=== PATIENT | female | born 1955 | race Caucasian/White ===

== ENCOUNTER 2021-10-22 17:03 | Observation (INO) | payer OTHER, MEDICARE ==
[2021-10-22 18:20] LABS: Absolute Lymphocytes (CBC) 1.6 K/uL (0.7-4.9); Hematocrit 39.6 % (36.0-45.0); Lymphocytes % 20.8 % (15.3-44.8); MCV 91.6 fL (80-100); MPV 8.9 fL (7.6-11.3); Protime INR 0.95; RBC Red Blood Cell Count 4.32 M/uL (3.86-4.86)
--- NOTE | 2021-10-22 18:21 | RAD REPORT ---
EXAM DESCRIPTION: CT - Ct Stroke Brain Wo Cont - 10/22/2021 6:15 pm CLINICAL HISTORY: ATAXIA CVA symptomology COMPARISON: <Comparisons> TECHNIQUE: All CT scans are performed using dose optimization technique as appropriate and may inclu de automated exposure control or mA/KV adjustment according to patient size. FINDINGS: No intracranial hemorrhage, hydrocephalus or extra-axial fluid collection.Mild brain atrop hy.No areas of brain edema or evidence of midline shift. The paranasal sinuses and mastoids are clear. The calvarium is intact. IMPRESSION: No acute intracranial abnormality. The findings were communicated with Dr. Kang in the ER on 10/22/2021 at 6:15 p.m. by telephone.
--- NOTE | 2021-10-22 18:23 | RAD REPORT ---
EXAM DESCRIPTION: CT - Head angio - 10/22/2021 6:16 pm CLINICAL HISTORY: Neuro deficit, acute, stroke suspected COMPARISON: Ct Stroke Brain Wo Cont dated 10/22/2021 TECHNIQUE: CT angiography of the head was performed with MIPs. All CT scans are performed using dose optimization technique as appropriate and may include automated exposure control or mA/KV adjustment according to patient size. FINDINGS: No evidence of aneurysm is detected. No flow-limiting stenosis or vascular malformation id entified. Antegrade flow is seen in the vertebral arteries. The vertebral arteries are codominant. The visualized dural venous sinuses are patent. IMPRESSION: No significant flow abnormality is detected.
--- NOTE | 2021-10-22 18:25 | ER ---
Nurse's Notes [facility] Name: Solange Estrada Age: 66 yrs Sex: Female : 1955 Arrival Date: 10/22/2021 Time: 17:05 Bed 2 Private MD: Diagnosis: Aphasia;Type 2 diabetes mellitus with hyperglycemia;Essential (primary) hypertension;Weakness Presentation: 10/22 17:18 Chief complaint: Patient states: a few weeks back I started to lose my words and I had iw been stumbling a while but in the last week I've been falling , my left side feels weaker than the other, that's been about a week , also is having tremors in both arms. Coronavirus screen: At this time, the client does not indicate any symptoms associated with coronavirus-19. Ebola Screen: Patient negative for fever greater than or equal to 101.5 degrees Fahrenheit, and additional compatible Ebola Virus Disease symptoms Patient denies exposure to infectious person. Patient denies travel to an Ebola-affected area in the 21 days before illness onset. No symptoms or risks identified at this time. No acute neurological deficit is noted. Pre-hospital glucose is not applicable to this patient. Initial Sepsis Screen: Does the patient meet any 2 criteria? No. Patient's initial sepsis screen is negative. Does the patient have a suspected source of infection? No. Patient's initial sepsis screen is negative. Risk Assessment: Do you want to hurt yourself or someone else? Patient reports no desire to harm self or others. Onset of symptoms was October 15, 2021. 17:18 Method Of Arrival: Wheelchair iw 17:18 Acuity: CHENCHO 3 iw Triage Assessment: 22:38 The onset of the patients symptoms was October 22, 2021 at 22:38. General: Appears in no kd3 apparent distress. Behavior is calm, cooperative. 22:38 Neuro: Reports weakness. kd3 Stroke Activation: Symptom onset > 6 hours Physician: Stroke Attending; Name: ; Notified At: ; Arrived At: Physician: Chief Stroke Resident; Name: ; Notified At: ; Arrived At: Physician: Stroke Resident; Name: ; Notified At: ; Arrived At: Physician: ED Attending; Name: ; Notified At: ; Arrived At: Physician: ED Resident; Name: ; Notified At: ; Arrived At: Historical: - Allergies: 17:21 Aspirin; iw - Home Meds: 17:21 nortriptyline 125 mg Oral once daily [Active]; clopidogrel 75 mg oral tab 1 tab once iw daily [Active]; irbesartan 300 mg oral tab 1 tab once daily [Active]; metoprolol tartrate 100 mg Oral tab 1 tab once daily [Active]; metformin 1,000 mg Oral tr24 1 tab 2 times per day [Active]; glimepiride 4 mg Oral tab 1 tab twice a day [Active]; levothyroxine 50 mcg tab 1 tab once daily [Active]; Farxiga 10 mg oral tab 1 tab once daily [Active]; zolpidem 12.5 mg Oral TbMP 1 tab once daily [Active]; - PMHx: 17:21 Diabetes mellitus; Hypertensive disorder; iw - Immunization history:: Client reports receiving the 2nd dose of the Covid vaccine. - Social history:: Smoking status: Patient reports the use of cigarette tobacco products, denies chronic smoking, but will smoke occasionally. - Hospitalizations: : No recent hospitalization is reported. Screenin:37 Abuse screen: Denies threats or abuse. Denies injuries from another. Nutritional kd3 screening: No deficits noted. Tuberculosis screening: No symptoms or risk factors identified. Fall Risk IV access (20 points). Assessment: 18:30 General: MRI called stating that pt is needing medication for anxiety while completing jh6 the study. provider advised. . 22:30 VAN Scoring: Arm Drift: Patients demonstrates NO arm weakness. Patient is VAN Negative. kd3 Patient has been NPO before screening. The patient is alert, and able to follow commands. The patient does not exhibit slurred or garbled speech. The patient is not exhibiting difficulty speaking. The patient is exhibiting difficulty understanding words. The patient is able to swallow own secretions with no drooling or need for suction. Patient tolerated one teaspoon of water. No drooling, immediate coughing, gurgling, or clearing of the throat was noted. The patient tolerated 90mL of water. No drooling, immediate coughing, gurgling, or clearing of the throat was noted. The patient passed the bedside swallow screening. Oral medications may be given as ordered. Contact Physician for further diet orders. Provider notified of bedside swallow screening results: Angel Luis Kang MD. TNKase (Tenecteplase) Screening: Contraindications:. Pain: Denies pain. Neuro: Level of Consciousness is awake, alert, obeys commands, Oriented to person, place, time, situation. Vital Signs: 17:18 BP 107 / 54; Pulse 100; Resp 16; Temp 98.8; Pulse Ox 100% on R/A; Weight 68.04 kg; iw Height 5 ft. 0 in. (152.40 cm); 22:39 BP 108 / 53; Pulse 102; Resp 19; Pulse Ox 100% on R/A; kd3 17:18 Body Mass Index 29.29 (68.04 kg, 152.40 cm) iw NIH Stroke Scale Scores: 18:04 NIHSS Score: 2 rosa maria 22:30 NIHSS Score: 0 kd3 ED Course: 17:05 Patient arrived in ED. as 17:21 Triage completed. iw 17:24 Arm band placed on. iw 17:28 Angel Luis Kang MD is Attending Physician. rosa maria 18:00 Initial lab(s) drawn, by tn, sent to lab. Inserted saline lock: 20 gauge in left dh3 forearm, using aseptic technique. Blood collected. 18:17 CT Stroke Brain w/o Contrast In Process Unspecified. EDMS 18:17 CT Head Angio In Process Unspecified. EDMS 18:18 CT Neck Angio In Process Unspecified. EDMS 18:21 Gavino Gramajo is Hospitalizing Provider. rosa maria 18:41 Brain Wo Cont Sent. jh6 18:56 Brain Wo Cont In Process Unspecified. EDMS 19:36 XRAY Chest (1 view) In Process Unspecified. EDMS 20:50 Jessica Mosley, RN is Primary Nurse. kd3 22:37 Patient has correct armband on for positive identification. kd3 22:37 No provider procedures requiring assistance completed. Patient admitted, IV remains in kd3 place. Administered Medications: 18:38 Drug: Ativan (LORazepam) 1 mg Route: IVP; Site: left antecubital; [facility] 22:40 Follow up: Response: No adverse reaction kd3 20:44 Not Given (Duplicate Order): Ativan (LORazepam) 1 mg IVP once kl 21:12 Drug: NS 0.9% 1000 ml Route: IV; Rate: 1 bolus; Site: left antecubital; 22:40 Follow up: Response: No adverse reaction; IV Status: Completed infusion kd3 22:22 Drug: foLIC Acid 1 mg Route: IVPB; Site: left antecubital; kd3 22:22 Follow up: Response: No adverse reaction; IV Status: Completed infusion kd3 Medication: 22:39 VIS not applicable for this client. kd3 Point of Care Testing: Blood Glucose: 22:39 Blood Glucose: 120 mg/dL; kd3 Ranges: Outcome: 18:24 Decision to Hospitalize by Provider. [facility] 22:37 Admitted to Med/surg accompanied by tech, room 210. kd3 22:37 Condition: stable 22:37 Discharge instructions given to patient, Instructed on the need for admit, Demonstrated understanding of instructions. 23:20 Patient left the ED. kd3 NIH Stroke Scale - NIH Stroke Score Date: 10/22/2021 Time: 18:04 Total Score = 2 1a. Level of Consciousness (LOC) - 0(Alert) 1b. Level of Consciousness (LOC) (Month \T\ Age) - 0(Both) 1c. LOC Commands (Open \T\ Closes Eyes/Senior Manager Mmcoe) - 0(Both) 2. Best Gaze (Lateral Gaze Paresis) - 0(Normal) 3. Visual Field Loss - 0(No visual loss) 4. Facial Palsy - 0(Normal) 5a. Left Arm: Motor (10-second hold) - 0(No drift) 5b. Right Arm: Motor (10-second hold) - 0(No drift) 6a. Left Leg: Motor (5-second hold - always test supine) - 0(No drift) 6b. Right Leg: Motor (5-second hold - always test supine) - 0(No drift) 7. Limb Ataxia (finger/nose \T\ heel/dias - test with eyes open) - 2(Present in two limbs) 8. Sensory Loss (pinprick arms/legs/face) - 0(Normal) 9. Best Language: Aphasia (description/naming/reading) - 0(No aphasia) 10. Dysarthria (speech clarity - read or repeat words) - 0(Normal) 11. Extinction and Inattention (visual/tactile/auditory/spatial/personal) - 0(No abnormality) Initials: rosa maria NIH Stroke Scale - NIH Stroke Score Date: 10/22/2021 Time: 22:30 Total Score = 0 1a. Level of Consciousness (LOC) - 0(Alert) 1b. Level of Consciousness (LOC) (Month \T\ Age) - 0(Both) 1c. LOC Commands (Open \T\ Closes Eyes/Senior Manager Mmcoe) - 0(Both) 2. Best Gaze (Lateral Gaze Paresis) - 0(Normal) 3. Visual Field Loss - 0(No visual loss) 4. Facial Palsy - 0(Normal) 5a. Left Arm: Motor (10-second hold) - 0(No drift) 5b. Right Arm: Motor (10-second hold) - 0(No drift) 6a. Left Leg: Motor (5-second hold - always test supine) - 0(No drift) 6b. Right Leg: Motor (5-second hold - always test supine) - 0(No drift) 7. Limb Ataxia (finger/nose \T\ heel/dias - test with eyes open) - 0(Absent) 8. Sensory Loss (pinprick arms/legs/face) - 0(Normal) 9. Best Language: Aphasia (description/naming/reading) - 0(No aphasia) 10. Dysarthria (speech clarity - read or repeat words) - 0(Normal) 11. Extinction and Inattention (visual/tactile/auditory/spatial/personal) - 0(No abnormality) Initials: kd3 Signatures: Dispatcher [employer] EDMS Sherie Connors, RN Angel Luis Reddy MD MD cha Martinez, Amelia as Williams, Irene, RN RN iw Herrera, [facility] Jessica Mosley RN RN kd3 Margie Bradley RN RN jh6
--- NOTE | 2021-10-22 18:25 | EDPHYS ---
Physician Documentation [facility] Name: Solange Estrada Age: 66 yrs Sex: Female : 1955 Arrival Date: 10/22/2021 Time: 17:05 Bed 2 Private MD: MARIO Physician Angel Luis Kang HPI: 10/22 18:04 This 66 yrs old Female presents to ER via Wheelchair with complaints of rosa maria Trouble Walking. 18:04 The patient presents to the emergency department with weakness of the left upper rosa maria extremity, left lower extremity, a speech or higher order brain function problem, aphasia. Onset: The symptoms/episode began/occurred 60 day(s) ago. Context: occurred at an unknown location. Associated signs and symptoms: Pertinent positives: dizziness, near-syncope, weakness, LEFT ARM AND LEG UNCOORDINATED. Severity of symptoms: At their worst the symptoms were mild in the emergency department the symptoms are unchanged. Patient's baseline: Neuro: alert and fully oriented, Motor: no deficits, Ambulation: walks without assistance, Speech: normal for age. Current symptoms: dysphasia. The patient has experienced similar episodes in the past, several times. Historical: - Allergies: 17:21 Aspirin; iw - Home Meds: 17:21 nortriptyline 125 mg Oral once daily [Active]; clopidogrel 75 mg oral tab 1 tab once iw daily [Active]; irbesartan 300 mg oral tab 1 tab once daily [Active]; metoprolol tartrate 100 mg Oral tab 1 tab once daily [Active]; metformin 1,000 mg Oral tr24 1 tab 2 times per day [Active]; glimepiride 4 mg Oral tab 1 tab twice a day [Active]; levothyroxine 50 mcg tab 1 tab once daily [Active]; Farxiga 10 mg oral tab 1 tab once daily [Active]; zolpidem 12.5 mg Oral TbMP 1 tab once daily [Active]; - PMHx: 17:21 Diabetes mellitus; Hypertensive disorder; iw - Immunization history:: Client reports receiving the 2nd dose of the Covid vaccine. - Social history:: Smoking status: Patient reports the use of cigarette tobacco products, denies chronic smoking, but will smoke occasionally. - Hospitalizations: : No recent hospitalization is reported. ROS: 18:04 Constitutional: Negative for fever, chills, and weight loss, Eyes: Negative for injury, rosa maria pain, redness, and discharge, ENT: Negative for injury, pain, and discharge, Neck: Negative for injury, pain, and swelling, Cardiovascular: Negative for chest pain, palpitations, and edema, Respiratory: Negative for shortness of breath, cough, wheezing, and pleuritic chest pain, Abdomen/GI: Negative for abdominal pain, nausea, vomiting, diarrhea, and constipation, Back: Negative for injury and pain, : Negative for injury, bleeding, discharge, and swelling, MS/Extremity: Negative for injury and deformity, Skin: Negative for injury, rash, and discoloration, Psych: Negative for depression, anxiety, suicide ideation, homicidal ideation, and hallucinations, Allergy/Immunology: Negative for hives, rash, and allergies, Endocrine: Negative for neck swelling, polydipsia, polyuria, polyphagia, and marked weight changes, Hematologic/Lymphatic: Negative for swollen nodes, abnormal bleeding, and unusual bruising. 18:04 Neuro: Positive for gait disturbance, speech changes, tremor, weakness. Exam: 18:04 Constitutional: This is a well developed, well nourished patient who is awake, alert, rosa maria and in no acute distress. Head/Face: Normocephalic, atraumatic. Eyes: Pupils equal round and reactive to light, extra-ocular motions intact. Lids and lashes normal. Conjunctiva and sclera are non-icteric and not injected. Cornea within normal limits. Periorbital areas with no swelling, redness, or edema. ENT: Nares patent. No nasal discharge, no septal abnormalities noted. Tympanic membranes are normal and external auditory canals are clear. Oropharynx with no redness, swelling, or masses, exudates, or evidence of obstruction, uvula midline. Mucous membranes moist. Neck: Trachea midline, no thyromegaly or masses palpated, and no cervical lymphadenopathy. Supple, full range of motion without nuchal rigidity, or vertebral point tenderness. No Meningismus. Chest/axilla: Normal chest wall appearance and motion. Nontender with no deformity. No lesions are appreciated. Cardiovascular: Regular rate and rhythm with a normal S1 and S2. No gallops, murmurs, or rubs. Normal PMI, no JVD. No pulse deficits. Respiratory: Lungs have equal breath sounds bilaterally, clear to auscultation and percussion. No rales, rhonchi or wheezes noted. No increased work of breathing, no retractions or nasal flaring. Abdomen/GI: Soft, non-tender, with normal bowel sounds. No distension or tympany. No guarding or rebound. No evidence of tenderness throughout. Back: No spinal tenderness. No costovertebral tenderness. Full range of motion. Female : Normal external genitalia. Skin: Warm, dry with normal turgor. Normal color with no rashes, no lesions, and no evidence of cellulitis. MS/ Extremity: Pulses equal, no cyanosis. Neurovascular intact. Full, normal range of motion. Psych: Awake, alert, with orientation to person, place and time. Behavior, mood, and affect are within normal limits. Vital Signs: 17:18 BP 107 / 54; Pulse 100; Resp 16; Temp 98.8; Pulse Ox 100% on R/A; Weight 68.04 kg; iw Height 5 ft. 0 in. (152.40 cm); 22:39 BP 108 / 53; Pulse 102; Resp 19; Pulse Ox 100% on R/A; kd3 17:18 Body Mass Index 29.29 (68.04 kg, 152.40 cm) iw NIH Stroke Scale Scores: 18:04 NIHSS Score: 2 rosa maria 22:30 NIHSS Score: 0 kd3 MDM: 17:28 Patient medically screened. rosa maria 18:18 Data reviewed: vital signs, nurses notes, lab test result(s), EKG, radiologic studies, rosa maria CT scan, MRI, plain films. Data interpreted: hospital monitor: rate is 100 beats/min, rhythm is regular, Pulse oximetry: on room air is 100 %. Test interpretation: by ED physician or midlevel provider: ECG, plain radiologic studies. Counseling: I had a detailed discussion with the patient and/or guardian regarding: the historical points, exam findings, and any diagnostic results supporting the discharge/admit diagnosis, lab results, radiology results, the need for further work-up and treatment in the hospital. 10/22 17:38 Order name: Basic Metabolic Panel; Complete Time: 18:42 [facility] 10/22 17:38 Order name: CBC with Diff; Complete Time: 18:42 [facility] 10/22 17:38 Order name: D-Dimer; Complete Time: 18:29 [facility] 10/22 17:38 Order name: Magnesium; Complete Time: 18:42 [facility] 10/22 17:38 Order name: NT PRO-BNP; Complete Time: 18:42 [facility] 10/22 17:38 Order name: PT-INR; Complete Time: 18:29 [facility] 10/22 17:38 Order name: Troponin HS; Complete Time: 18:42 [facility] 10/22 17:38 Order name: XRAY Chest (1 view); Complete Time: 22:45 [facility] 10/22 17:38 Order name: Sed Rate; Complete Time: 18:42 [facility] 10/22 17:38 Order name: CRP; Complete Time: 18:42 [facility] 10/22 17:38 Order name: CT Stroke Brain w/o Contrast; Complete Time: 18:29 [facility] 10/22 17:38 Order name: CT Head Angio; Complete Time: 18:29 [facility] 10/22 17:38 Order name: CT Neck Angio; Complete Time: 18:29 [facility] 10/22 20:21 Order name: SARS RAPID; Complete Time: 22:45 [facility] 10/22 17:38 Order name: EKG; Complete Time: 17:39 [facility] 10/22 17:38 Order name: Cardiac monitoring; Complete Time: 22:15 [facility] 10/22 17:38 Order name: EKG - Nurse/Tech; Complete Time: 22:36 [facility] 10/22 17:38 Order name: IV Saline Lock; Complete Time: 18:03 [facility] 10/22 17:38 Order name: Labs collected and sent; Complete Time: 18:03 [facility] 10/22 17:38 Order name: O2 Per Protocol; Complete Time: 18:03 [facility] 10/22 17:38 Order name: O2 Sat Monitoring; Complete Time: 18:03 [facility] 10/22 17:38 Order name: Urine Dipstick-Ancillary (obtain specimen); Complete Time: 22:36 [facility] 10/22 17:47 Order name: Brain Wo Cont; Complete Time: 19:20 EDMS Administered Medications: 18:38 Drug: Ativan (LORazepam) 1 mg Route: IVP; Site: left antecubital; jh6 22:40 Follow up: Response: No adverse reaction kd3 20:44 Not Given (Duplicate Order): Ativan (LORazepam) 1 mg IVP once kl 21:12 Drug: NS 0.9% 1000 ml Route: IV; Rate: 1 bolus; Site: left antecubital; kl 22:40 Follow up: Response: No adverse reaction; IV Status: Completed infusion kd3 22:22 Drug: foLIC Acid 1 mg Route: IVPB; Site: left antecubital; kd3 22:22 Follow up: Response: No adverse reaction; IV Status: Completed infusion kd3 Point of Care Testing: Blood Glucose: 22:39 Blood Glucose: 120 mg/dL; kd3 Ranges: Critical Glucose Levels:Adult <50 mg/dl or >400 mg/dl <40 mg/dl or >180 mg/dl Disposition Summary: 10/22/21 18:24 Hospitalization Ordered Hospitalization Status: Observation rosa maria Provider: Gavino Gramajo cha Location: Telemetry/MedSurg (observation) rosa maria Condition: Fair rosa maria Problem: new rosa maria Symptoms: have improved rosa maria Bed/Room Type: Standard rosa maria Room Assignment: 210(10/22/21 21:41) cg Diagnosis - Aphasia rosa maria - Type 2 diabetes mellitus with hyperglycemia rosa maria - Essential (primary) hypertension rosa maria - Weakness rosa maria Forms: - Medication Reconciliation Form rosa maria - SBAR form rosa maria NIH Stroke Scale - NIH Stroke Score Date: 10/22/2021 Time: 18:04 Total Score = 2 1a. Level of Consciousness (LOC) - 0(Alert) 1b. Level of Consciousness (LOC) (Month \T\ Age) - 0(Both) 1c. LOC Commands (Open \T\ Closes Eyes/Donor Services Manager) - 0(Both) 2. Best Gaze (Lateral Gaze Paresis) - 0(Normal) 3. Visual Field Loss - 0(No visual loss) 4. Facial Palsy - 0(Normal) 5a. Left Arm: Motor (10-second hold) - 0(No drift) 5b. Right Arm: Motor (10-second hold) - 0(No drift) 6a. Left Leg: Motor (5-second hold - always test supine) - 0(No drift) 6b. Right Leg: Motor (5-second hold - always test supine) - 0(No drift) 7. Limb Ataxia (finger/nose \T\ heel/dias - test with eyes open) - 2(Present in two limbs) 8. Sensory Loss (pinprick arms/legs/face) - 0(Normal) 9. Best Language: Aphasia (description/naming/reading) - 0(No aphasia) 10. Dysarthria (speech clarity - read or repeat words) - 0(Normal) 11. Extinction and Inattention (visual/tactile/auditory/spatial/personal) - 0(No abnormality) Initials: rosa maria NIH Stroke Scale - NIH Stroke Score Date: 10/22/2021 Time: 22:30 Total Score = 0 1a. Level of Consciousness (LOC) - 0(Alert) 1b. Level of Consciousness (LOC) (Month \T\ Age) - 0(Both) 1c. LOC Commands (Open \T\ Closes Eyes/Donor Services Manager) - 0(Both) 2. Best Gaze (Lateral Gaze Paresis) - 0(Normal) 3. Visual Field Loss - 0(No visual loss) 4. Facial Palsy - 0(Normal) 5a. Left Arm: Motor (10-second hold) - 0(No drift) 5b. Right Arm: Motor (10-second hold) - 0(No drift) 6a. Left Leg: Motor (5-second hold - always test supine) - 0(No drift) 6b. Right Leg: Motor (5-second hold - always test supine) - 0(No drift) 7. Limb Ataxia (finger/nose \T\ heel/dias - test with eyes open) - 0(Absent) 8. Sensory Loss (pinprick arms/legs/face) - 0(Normal) 9. Best Language: Aphasia (description/naming/reading) - 0(No aphasia) 10. Dysarthria (speech clarity - read or repeat words) - 0(Normal) 11. Extinction and Inattention (visual/tactile/auditory/spatial/personal) - 0(No abnormality) Initials: kd3 Signatures: Dispatcher [employer] EDMS Sherie Connors RN RN kl Anderson, Corey, MD MD cha Williams, Irene, RN RN iw Garcia, Cindy, RN RN cg Doucette, Kyli, RN RN kd3 Margie Bradley RN RN jh6 Karey Stephens PA PA [id number] Corrections: (The following items were deleted from the chart) 17:56 17:49 Brain Wo Cont+MRI.RAD.BRZ ordered. EDMS EDMS 21:41 18:24 rosa maria joseph
--- NOTE | 2021-10-22 18:26 | RAD REPORT ---
EXAM DESCRIPTION: CT - Neck Angio - 10/22/2021 6:16 pm CLINICAL HISTORY: Neuro deficit, acute, stroke suspected COMPARISON: No comparisons TECHNIQUE: CT angiography of the neck vessels was performed with MIPs. All CT scans are performed using dose optimization technique as appropriate and may include automated exposure control or mA/KV adjustment according to patient size. FINDINGS: A left aortic arch is identified with normal three vessel configuration of the great vesse ls. No significant flow abnormality is seen of the common carotid bilaterally. Mild hard plaque is seen in both carotid bulbs. No significant stenosis is identified involving the c ervical segments of both internal carotid arteries. Normal flow is seen within both vertebral arteries. IMPRESSION: Mild hard plaque is seen in both carotid bulbs without a significant stenosis present.
[2021-10-22 18:33] LABS: BUN Blood Urea Nitrogen 14 mg/dL (7-18); Bicarbonate 23 mmol/L (21-32); Glomerular Filtration Rate 83 ml/min (=/>90); Glucose Level 120 mg/dL (74-106); Magnesium 1.8 mg/dL (1.8-2.4); NT PRO-BNP 28 pg/mL (<125); Potassium 4.5 mmol/L (3.5-5.1); Sodium Level 139 mmol/L (136-145); Troponin High Sensitivity 4.4 pg/mL (<58.9)
[2021-10-22 18:37] LABS: C-Reactive Protein < 2.90 mg/L (<3.00)
[2021-10-22] MEDS ORDERED: LORazepam 2 MG/ML VIAL ONE (18:40)
--- NOTE | 2021-10-22 19:08 | RAD REPORT ---
EXAM DESCRIPTION: MRI - Brain Wo Cont - 10/22/2021 6:54 pm CLINICAL HISTORY: trouble walking CVA symptomology, headache COMPARISON: Head angio dated 10/22/2021 TECHNIQUE: Multi-sequence, multiplanar MR imaging of the brain was performed without contrast. FINDINGS: No intracranial hemorrhage, hydrocephalus or extra-axial fluid collections.Mild brain atro phy. No edema or shift of midline structures. No findings to suspect brain mass. DWI is negative for acute CVA. Midline structures are normally formed. Mastoid air cells and paranasal sinuses are clear. IMPRESSION: Negative for acute CVA or other acute intracranial abnormality
--- NOTE | 2021-10-22 20:08 | RAD REPORT ---
EXAM DESCRIPTION: RAD - Chest Single View - 10/22/2021 7:34 pm CLINICAL HISTORY: COUGH Chest pain. COMPARISON: No comparisons FINDINGS: Portable technique limits examination quality. The lungs are grossly clear. The heart is normal in size. No displaced fractures. IMPRESSION: No acute intrathoracic process suspected.
--- NOTE | 2021-10-22 20:17 | P.HP ---
Certification for Inpatient Patient admitted to: Observation With expected LOS: <2 Midnights Patient will require the following post-hospital care: None Practitioner: I am a practitioner with admitting privileges, knowledge of patient current condition, hospital course, and medical plan of care. Services: Services provided to patient in accordance with Admission requirements found in Title 42 Section 412.3 of the Code of Federal Regulations Patient History Date of Service: 10/22/21 Primary Care Provider: Marlene Raines Reason for admission: CVA R/O History of Present Illness: Patient is a 66-year-old female with hypertension, NIDDM, and hypothyroidism who presented to the ED with complaints of aphasia and falls/left-sided weakness for 1 week. She is not sure when her symptoms initially began, but she states that she has been having difficulty "finding her words" for a while now. She states she experiences falls when she is walking on an uneven surface or moves her head too much. Vital signs stable upon arrival. CT brain, CT head/neck angio, and MRI brain all negative for acute findings. Labs within normal limits. 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 She has an aspirin allergy. Upon my assessment, left-sided weakness is appreciated on both upper and lower extremity. Neurologic exam otherwise benign. ED provider wishes admit patient for observation. Home medications list reviewed: Yes - Past Medical/Surgical History Diabetic: Yes -: Type 2 Diabetes, Non-Insulin Dependent -: Hypertension -: Hypothyroidism -: Appendectomy -: Bilateral Knees Psychosocial/ Personal History: Patient is . - Family History Mother -: Stroke - Social History Smoking Status: Current some day smoker Alcohol use: Yes CD- Drugs: No Caffeine use: Yes Place of Residence: Home Review of Systems Neurological: Incoordination, Change in Speech Physical Examination - Physical Exam General: Alert, In no apparent distress HEENT: Atraumatic, PERRLA, EOMI, Sclerae nonicteric Neck: Supple, 2+ carotid pulse no bruit, No LAD, Without JVD or thyroid abnormality Respiratory: Clear to auscultation bilaterally, Normal air movement Cardiovascular: Regular rate/rhythm, Normal S1 S2 Gastrointestinal: Normal bowel sounds, No tenderness Musculoskeletal: No tenderness Integumentary: No rashes Neurological: Sensation intact, Normal affect, Abnormal gait, Abnormal strength Lymphatics: No axilla or inguinal lymphadenopathy - Studies Laboratory Data (last 24 hrs) 10/22/21 18:00: PT 10.4, INR 0.95 10/22/21 18:00: WBC 7.5, Hgb 13.0, Hct 39.6, Plt Count 156 10/22/21 18:00: Sodium 139, Potassium 4.5, BUN 14, Creatinine 0.78, Glucose 120 H, Magnesium 1.8 Assessment and Plan - Problems (Diagnosis) (1) Expressive aphasia Current Visit: Yes Status: Acute (2) Left-sided weakness Current Visit: Yes Status: Acute (3) Hypertension Current Visit: Yes Status: Chronic Qualifiers: Hypertension type: primary hypertension Qualified Code(s): I10 - Essential (primary) hypertension (4) Type 2 diabetes mellitus Current Visit: Yes Status: Chronic Qualifiers: Diabetes mellitus [facility] insulin use: without rat exterminator use Diabetes mellitus complication status: with hyperglycemia Qualified Code(s): E11.65 - Type 2 diabetes mellitus with hyperglycemia (5) Hypothyroidism Current Visit: Yes Status: Chronic Qualifiers: Hypothyroidism type: acquired Qualified Code(s): E03.9 - Hypothyroidism, unspecified - Plan -Monitor on telemetry overnight -Neurology consult in place -Echo and carotid US ordered for morning -Lipid panel, TSH, and A1C pending -ACHS accu checks with mild SS and diabetic diet -PT evaluation -Orthostatic vitals -Monitor and replete electrolytes per protocol -Reconcile and continue home medications -Lovenox for VTE ppx -Full code Discharge Plan: Home Plan to discharge in: 24 Hours - Advance Directives Does patient have a Living Will: No Does patient have a Durable POA for Healthcare: No - Code Status/Comfort Care Code Status Assessed: Yes (Full) Critical Care: No Time Spent Managing Pts Care (In Minutes): 50
[2021-10-22] MEDS ORDERED: NA CHLORIDE 0.9% 1,000 ML ONE (21:14)
[2021-10-22 22:10] LABS: SARS-CoV-2 Antigen Rapid Res Negative (Negative)
[2021-10-22] MEDS ORDERED: FOLIC ACID 5 MG/ML VIAL ONE (22:29)
[2021-10-22 23:06] VITALS: BMI 30.3
[2021-10-22] MEDS ORDERED: ONDANSETRON 4 MG/2 ML VIAL IV PRN (23:25)
[2021-10-22] MEDS: INSULIN -REGULAR HUMAN 50 UNIT/0.5 ML ML SQ SCH (23:25)
[2021-10-22] MEDS ORDERED: ACETAMINOPHEN 500 MG TAB PO PRN (23:25)
[2021-10-23 00:46] VITALS: O2SAT 100
[2021-10-23] MEDS: NA CHLORIDE 0.9% 1,000 ML IV SCH ×2 (01:03→11:00)
[2021-10-23 01:45] LABS: Specific Gravity 1.015 (1.005-1.030); Urine Bilirubin Negative (Negative); Urine Blood Negative (Negative); Urine Clarity Clear (Clear); Urine Color Yellow (Yellow); Urine Glucose 2+ (Negative); Urine Protein Negative (Negative); Urine Urobilinogen 0.2 mg/dL (0.2-1.0)
[2021-10-23 05:04] LABS: Absolute Lymphocytes (CBC) 2.1 K/uL (0.7-4.9); Hematocrit 36.3 % (36.0-45.0); Lymphocytes % 32.5 % (15.3-44.8); RBC Red Blood Cell Count 4.04 M/uL (3.86-4.86)
[2021-10-23 05:23] LABS: BUN Blood Urea Nitrogen 13 mg/dL (7-18); Bicarbonate 23 mmol/L (21-32); Glomerular Filtration Rate 97 ml/min (=/>90); Glucose Level 131 mg/dL (74-106); HDL Cholesterol 30 mg/dL (40-60); Magnesium 1.6 mg/dL (1.8-2.4); Phosphorus 2.9 mg/dL (2.5-4.9); Sodium Level 139 mmol/L (136-145)
[2021-10-23 05:48] LABS: LDL, Direct 39 mg/dL (100-129)
[2021-10-23] MEDS: INSULIN -REGULAR HUMAN 50 UNIT/0.5 ML ML SQ SCH ×3 (07:30→15:48)
--- NOTE | 2021-10-23 07:44 | RAD REPORT ---
EXAM DESCRIPTION: - CP - 10/23/2021 5:25 am CLINICAL HISTORY: cva r/o COMPARISON: Neck Angio dated 10/22/2021 TECHNIQUE: Real-time sonographic evaluation of both carotid systems was performed. Doppler interroga tion was performed with waveform tracing bilaterally. FINDINGS: Normal high resistance waveforms are noted in both external carotid arteries. The common c arotid arteries and internal carotid arteries show normal low resistance waveforms. Mild soft and hard plaque noted at both carotid bulbs. Peak systolic and end diastolic velocity value s and the ICA/CCA ratios are in the non-hemodynamically significant range. Antegrade flow seen in both vertebral arteries. IMPRESSION: Mild soft and hard plaque at the carotid bulbs. No evidence of a hemodynamically significant stenosis.
[2021-10-23] MEDS ORDERED: MAGNESIUM SULFATE 1 gm IVPB 1 GM/100 ML BAG IV ONE (09:00)
[2021-10-23] MEDS ORDERED: ENOXAPARIN 40 MG/0.4 ML SQ SCH (09:00)
--- NOTE | 2021-10-23 13:04 | EKG ---
Test Date: 2021-10-22 Test Time: 22:34:05 Pusher Operator: NARCISO MEASUREMENT RESULTS: Intervals: Rate: 95 KS: 196 QRSD: 94 QT: 376 QTc: 472 Larsen: P: 61 KS: 196 QRS: 71 T: 59 INTERPRETIVE STATEMENTS: Normal sinus rhythm Normal ECG No previous ECG available for comparison Electronically Signed On 10-23-21 13:03:24 CDT by Jamaal Dsouza
--- NOTE | 2021-10-23 13:56 | ECHO ---
HEIGHT: 5 ft 0 in WEIGHT: 150 lb 0 oz DATE OF STUDY: 10/23/[address]: Karey Stephens 2-DIMENSIONAL: YES M.MODE: YES DOPPLER: YES COLOR FLOW: YES TDS: NO PORTABLE: YES DEFINITY: NO BUBBLE STUDY: NO DIAGNOSIS: CEREBRAL VASCULAR ACCIDENT CARDIAC HISTORY: CATHERIZATION: SURGERY: PROSTHETIC VALVE: PACEMAKER: MEASUREMENTS (cm) DIASTOLIC (NORMALS) SYSTOLIC (NORMALS) IVSd 1.4 (0.6-1.2) LA Diam 3.4 (1.9-4.0) LVEF 66% LVIDd 3.5 (3.5-5.7) LVIDs 2.3 (2.0-3.5) %FS 35% LVPWd 1.1 (0.6-1.2) Ao Diam 2.4 (2.0-3.7) 2 DIMENSIONAL ASSESSMENT: RIGHT ATRIUM: NORMAL LEFT ATRIUM: NORMAL RIGHT VENTRICLE: NORMAL LEFT VENTRICLE: LEFT VENTRICULAR HYPERTROPHY TRICUSPID VALVE: MITRAL VALVE: NORMAL PULMONIC VALVE: AORTIC VALVE: THICKENED PERICARDIAL EFFUSION: NONE AORTIC ROOT: NORMAL LEFT VENTRICULAR WALL MOTION: HYPERDYNAMIC LEFT VENTRICLE. DOPPLER/COLOR FLOW: SEE BELOW. COMMENTS: NORMAL LEFT VENTRICULAR EJECTION FRACTION > 60%, HYPERDYNAMIC. NORMAL WALL MOTION. MILD TRICUSPID AND PULMONARY REGURGITATION. MILD CONCENTRIC LEFT VENTRICULAR HYPERTROPHY. TECHNOLOGIST: Nura STOLL
--- NOTE | 2021-10-23 14:25 | P.DS ---
Admission Date: 10/22/21 Discharge Date: 10/23/21 Primary Care Provider: Marlene Raines Disposition: ROUTINE DISCHARGE Discharge Condition: FAIR Reason for Admission: CVA R/O - Problems (1) Stroke-like symptoms Current Visit: Yes Status: Acute (2) Hypertriglyceridemia Current Visit: Yes Status: Acute (3) Hypertension Current Visit: Yes Status: Chronic Qualifiers: Hypertension type: primary hypertension Qualified Code(s): I10 - Essential (primary) hypertension (4) Hypothyroidism Current Visit: Yes Status: Chronic Qualifiers: Hypothyroidism type: acquired Qualified Code(s): E03.9 - Hypothyroidism, unspecified (5) Type 2 diabetes mellitus Current Visit: Yes Status: Chronic Qualifiers: Diabetes mellitus [facility] insulin use: without joint terminal attack controller use Diabetes mellitus complication status: with hyperglycemia Qualified Code(s): E11.65 - Type 2 diabetes mellitus with hyperglycemia Brief History of Present Illness: 66-year-old female with hypertension, NIDDM, and hypothyroidism presented to the ED with complaints of aphasia and falls/left-sided weakness for 1 week. She is not sure when her symptoms initially began, but she stated that she was been having difficulty "finding her words" for a while now. She stated she experienced falls when she is walking on an uneven surface or moves her head too much. Vital signs stable upon arrival. CT brain, CT head/neck angio, and MRI brain all negative for acute findings. Labs within normal limits. 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 She has an aspirin allergy. Patient noted to have left-sided weakness. Neurologic exam otherwise benign. She was hospitalized for further management. Hospital Course: Patient placed under observation on the medical floor. She ambulated without difficulty to and from bathroom. She had no problem with her speech. Carotid Doppler unremarkable. MRI of the brain: No acute stroke. CTA head and neck unremarkable. Echocardiogram done was unremarkable with normal EF. Patient seen by neurology and lumbar spine MRI done which showed radiculopathy and foraminal stenosis. Nothing to explain patient's left lower extremity weakness Patient seen by PT and she ambulated 300 feet without assistive device. PT recommended outpatient physical therapy. Stroke ruled out. Patient is discharged to follow-up with neurology-Dr. Ellison for further assessment as needed. Vital Signs/Physical Exam: Temp Pulse Resp BP Pulse Ox 98.3 F 110 H 18 126/61 95 10/23/21 12:00 10/23/21 12:00 10/23/21 12:00 10/23/21 12:00 10/23/21 12:00 General: Alert, In no apparent distress, Oriented x3 Neck: JVD not distended Respiratory: Normal air movement Cardiovascular: No edema, Regular rate/rhythm, Normal S1 S2 Gastrointestinal: Normal bowel sounds, Soft and benign, Non-distended Musculoskeletal: No swelling Integumentary: No rashes Neurological: Normal strength at 5/5 x4 extr Laboratory Data at Discharge: WBC 6.5 K/uL (4.3-10.9) 10/23/21 04:03 Hgb 12.1 g/dL (12.0-15.0) 10/23/21 04:03 Hct 36.3 % (36.0-45.0) 10/23/21 04:03 Plt Count 158 K/uL (152-406) 10/23/21 04:03 PT 10.4 SECONDS (9.5-12.5) 10/22/21 18:00 INR 0.95 10/22/21 18:00 Sodium 139 mmol/L (136-145) 10/23/21 04:03 Potassium 4.0 mmol/L (3.5-5.1) 10/23/21 04:03 BUN 13 mg/dL (7-18) 10/23/21 04:03 Creatinine 0.61 mg/dL (0.55-1.3) 10/23/21 04:03 Glucose 131 mg/dL (74-106) H 10/23/21 04:03 Phosphorus 2.9 mg/dL (2.5-4.9) 10/23/21 04:03 Magnesium 1.6 mg/dL (1.8-2.4) L 10/23/21 04:03 Triglycerides 552 mg/dL (<150) H 10/23/21 04:03 Cholesterol 118 mg/dL (<200) 10/23/21 04:03 LDL Cholesterol Direct 39 mg/dL (100-129) L 10/23/21 04:03 HDL Cholesterol 30 mg/dL (40-60) L 10/23/21 04:03 Cholesterol/HDL Ratio 3.93 10/23/21 04:03 Home Medications: Dapagliflozin Propanediol [Farxiga] 10 mg PO DAILY 10/22/21 Glimepiride 4 mg PO BID 10/22/21 Irbesartan 300 mg PO DAILY 10/22/21 Levothyroxine Sodium [Levothyroxine] 50 mcg PO DAILY 10/22/21 Metformin HCl [Metformin ER Osmotic] 1,000 mg PO BID 10/22/21 Metoprolol Tartrate 100 mg PO BEDTIME 10/22/21 Nortriptyline HCl [Pamelor] 125 mg PO BEDTIME 10/22/21 Zolpidem Tartrate [Ambien Cr] 12.5 mg PO BEDTIME 10/22/21 Clopidogrel Bisulfate [Plavix*] 75 mg PO DAILY #30 10/23/21 Fenofibrate Nanocrystallized [Fenofibrate] 48 mg PO DAILY #30 10/23/21 New Medications: Fenofibrate Nanocrystallized [Fenofibrate] 48 mg PO DAILY #30 Clopidogrel Bisulfate [Plavix*] 75 mg PO DAILY #30 Diet: ADA Activity: Ad padma Followup: NONE,NONE [Primary Care Provider] - 1-2 Weeks
[2021-10-23 15:37] VITALS: BP 145/76; TEMP 97.8
[2021-10-23] MEDS ORDERED: LORazepam 2 MG/ML VIAL IV ONE (16:40)
--- NOTE | 2021-10-23 17:24 | RAD REPORT ---
EXAM DESCRIPTION: MRI - Lumbar Spine Wo [place] - 10/23/2021 5:11 pm CLINICAL HISTORY: R/O Canal stenosis COMPARISON: No comparisons TECHNIQUE: Sagittal T1-weighted, T2-weighted and T2-STIR weighted sequences were obtained. Axial T1 -weighted and heavily T2-weighted sequenceswere obtained through the lumbar disc levels. FINDINGS: Lumbar bodies are normal in height and alignment. Fatty marrow degenerative changes are pr esent in L5-S1 abutting the L5-S1 disc space No suspicious marrow signal. No paraspinal masses. Conus is normal with no clumping or thickening of the cauda equina. T12-L1 level: No significant findings. L1-2 level: Early disc desiccation changes are present. No other significant finding. L2-3 level: Disc desiccation with minimal disc bulge in the central canal. No canal or foramen stenos is. L3-4 level: Disc is desiccated with loss in disc height. Bulging of disc material is seen in the cent ral canal with small annular fissure. Left foraminal disc bulge is minimal with no stenosis. Slightly more prominent right foraminal disc bulge and endplate spurring changes are present. There is mild r ight foraminal stenosis. Advanced facet joint degenerative changes are present right greater than lef t. L4-5 level: Disc is thinned and desiccated. Prominent bulging of disc material extends across the antoine tral canal and into each exit foramen. In the central canal is may represent a small broad-based tomas iation. There is no resulting central spinal stenosis. Prominent facet degenerative changes are prese nt. Mild bilateral foraminal stenosis is present. There is still perineural fat present. L5-S1 level: Near complete loss in disc height noted. Endplate spurring changes are present. In the m idline canal there is an 8 mm CC x 9 mm TR x 4 mm AP disc herniation. This flattens the thecal sac. T his abuts but does not displace the S1 nerve roots. Disc bulge and endplate spurring changes cause mi ld right-side and moderate severity left-sided foraminal stenosis. Facet degenerative changes are pre sent. Defect in the right-side lamina is present. This has look of a postsurgical laminectomy defect. Surgery history for the patient was not detailed. IMPRESSION: L5-S1 midline disc herniation in the setting of advanced degenerative disc disease. No c entral spinal stenosis. L5-S1 mild right-sided and moderate severity left-sided foraminal stenosis from disc bulge and endpla te spurring changes. Degenerative changes are present elsewhere in the lumbar spine, detailed at each level in the body of the report, not causing spinal stenosis or significant degrees of foraminal stenosis.
--- NOTE | 2021-10-23 23:55 | CON ---
Reason For Consultation: Consultation called because of possible stroke. History Of Present Illness: Ms. Estrada is a 66-year-old right-handed patient with poorl y controlled insulin-dependent diabetes mellitus, hypertension, hypothyroidism, who comes back to the hospital with 1 to 2 weeks of intermittent difficulty with expression and left lower extremity more than upper extremity weakness and falls. Symptoms have fluctuated, including her difficulty "finding words" and problems getting her thoughts together. She notes sudden loss of ability to hold herself up with the left leg giving out when trying to walk nearby, mild amount of difficulty elevating the knees and came to be evaluated. Her head CT scan, CT angiogram of the head and neck, and brain MRI d id not show any acute ischemic or hemorrhagic stroke. Lumbar spine MRI did show mild right and moder ate left L5-S1 foraminal stenosis due to disk bulge. There was no central canal stenosis. Carotid a rtery ultrasound showed mild soft and hard plaque in the carotid bulbs, but no evidence of hemodynami bharath significant stenosis. An echocardiogram showed ejection fraction of 66% and no significant abn ormalities. She was ambulated with Physical Therapy and did at least 250 to 300 feet with no assisti ve device and standby assistance. Past Medical History: As noted. Surgical History: Appendectomy, bilateral knee replacements. Allergies: ASPIRIN. Family History: Stroke in the mother. Social History: Smokes and drinks alcohol daily. Drinks caffeinated beverages. Review of Systems: As noted, difficulty with getting words out. Some weakness in the left lower extremity. Otherwise, no fevers or chills, myalgias, arthralgias, rash, headache, weight changes. Physical Examination: Vital Signs: Blood pressure 126 up to 145/61 to 76, pulse of 110, respiratory rate 16, temperature 9 8.3. Oxygen saturation 96% on room air. Height 5 feet, weight 150 pounds, BMI 29.3. General: Ms. Estrada is resting in bed. She is in no significant distress. HEENT: She is normocephalic, atraumatic. Her sclerae are anicteric. Oropharynx is pink and moist. Neck: Supple. Chest: Clear. Heart: Regular. Extremities: Show no significant clubbing, cyanosis, or edema. Neurological: She is alert and oriented to situation, place, and person. She has no expressive or r eceptive aphasias at this time. Her cranial nerve exam shows no deficits. Motor examination in the upper and lower extremities except for mild difficulty with proximal weakness in the left lower extre mity, she is intact at 5/5. Sensation: Stocking-glove loss to light touch and temperature in legs a nd arms. Reflexes are 1 in the upper extremities and trace at the patellae. Coordination intact in upper and lower extremities. Gait: Good stance, stride, and arm swing without an assistive device. Proximally, her strength for knee elevation is around 4/5; knee extension could not be broken, at le ast 5/5; and foot dorsiflexion and plantar flexion on the left 5/5. Assessment: Ms. Estrada is a 66-year-old patient with poorly controlled diabetes mellitus and hype rtension. LDL of 39 and HDL 30, but elevated triglycerides of 552. Her hemoglobin A1c is 7.2. Low magnesium of 1.6. Calcium and phosphorus are normal. She potentially has diabetic-related periphera l neuropathy issue, perhaps a mild neuropathy involving the left femoral nerve, perhaps above the kne e. Lumbar spine MRI does show on the right side mild and the left moderate L5-S1 nerve root compress ion. Plan: EMG nerve conduction of lower extremities to rule out radiculopathy or peripheral neuropathy c ausing the left lower extremity symptoms. She has had a negative MRI of the brain for stroke, or potential demyelinating condition, or other re asons for her lower extremity issues, but an LP could be considered if the symptoms fluctuate again, to more definitively rule out conditions like multiple sclerosis, which again is unlikely. Aspirin 81 mg daily should not be used because of her allergies, so potentially Plavix 75 mg daily fo r stroke risk reduction and management of her dyslipidemia and blood sugars, per Primary team. After discharge, follow up in Dr. Ellison's office within a month. ROBBIN/ANGI Voice ID: [id number] Report ID: [id number]
== END 2021-10-23 20:33 | disposition home or self-care (01) ==
LOC: ER 17:03 → ERHOLD 20:09 → 2ND 22:39
PROVIDERS: ADMIT Internal Medicine; ATTEND Internal Medicine
DX: R47.01 Aphasia (principal); R53.1 Weakness; E11.65 Type 2 diabetes mellitus with hyperglycemia; I10 Essential (primary) hypertension; E03.9 Hypothyroidism, unspecified; E78.1 Pure hyperglyceridemia; M48.07 Spinal stenosis, lumbosacral region; M54.16 Radiculopathy, lumbar region; R29.6 Repeated falls; F17.210 Nicotine dependence, cigarettes, uncomplicated; Z79.02 Long term (current) use of antithrombotics/antiplatelets; Z88.6 Allergy status to analgesic agent; Z96.653 Presence of artificial knee joint, bilateral; Z20.822 Contact with and (suspected) exposure to COVID-19; Z82.3 Family history of stroke
CPT/HCPCS: 96361; 93005; 93306; 85025 ×2; 80048 ×2; 36415; 83721; 83735 ×2; 84100; 85610; 80061; 82947 ×4; 85379; 85652; 84443; 81003; 83036; 84484; 83880; 86140; 70496; 70498; 70450; 71045; 93880; 70551; 72148; 97116; 97161; 96375; 96374; 99285; 87811; Q9967; J1650; J3475; J7030 ×3; G0378 ×2